=== PATIENT | male | born 1950 | race Caucasian/White ===

== ENCOUNTER 2017-09-16 07:00 | Inpatient (IN) | payer OTHER ==
[~2017-09-16] VITALS: Ht 180.3 cm; Wt 101.0 kg
[2017-09-16] VITALS (15 sets, daily range): BP systolic 142–165; BP diastolic 69–81; PULSE 69–88; RESP 11–19; Ht 180.3 cm; Wt 101.0 kg
[2017-09-16] MEDS ORDERED: GABA400C14 PO (17:24)
[2017-09-16] MEDS ORDERED: FLUO40CA10 PO (17:24)
[2017-09-16] MEDS ORDERED: MONT10TA24 PO (17:24)
[2017-09-16] MEDS ORDERED: LISI10TA2 PO (17:24)
[2017-09-16] MEDS ORDERED: [UNRECOGNIZED DRUG - CODE] PO (17:24)
[2017-09-16] MEDS ORDERED: LEVO200T6 PO (17:24)
[2017-09-16] MEDS ORDERED: DOXA4TAB3 PO (17:24)
[2017-09-16] MEDS ORDERED: LEVO300T PO (17:24)
[2017-09-16] MEDS ORDERED: ATOR40TA68 PO (17:24)
[2017-09-16] MEDS ORDERED: MORP60TA PO (17:24)
--- NOTE | 2017-09-16 18:45 | HPN ---
Date/Time of Note Date/Time of Note DATE: 09/16/17 TIME: 18:45 Interval H&P Admission Note Pt. seen H&P reviewed: No system changes NEL SHAFFER MD Sep 16, 2017 18:45
[2017-09-16] MEDS ORDERED: MIDAZOLAM 1 MG/ML 2 ML INJ ONE (19:02)
[2017-09-16] MEDS ORDERED: POLYMYXIN/BACITRACIN 1L IRRIG ONE (19:12)
[2017-09-16] MEDS ORDERED: THROMBIN 5000 UNIT VIAL ONE (19:12)
[2017-09-16] MEDS ORDERED: SURGIFOAM POWDER 1 GM KIT ONE (19:12)
[2017-09-16] MEDS ORDERED: BUPIVACAINE 0.5%/EPI (SDV) 30 ML INJ ONE (19:12)
[2017-09-16] MEDS ORDERED: GELATIN SIZE 100 SPONGE ONE (19:12)
[2017-09-16] MEDS ORDERED: hydrALAzine 20 MG INJ ONE (20:16)
[2017-09-16] MEDS ORDERED: morphine 10 MG INJ ONE (20:38)
[2017-09-16] MEDS ORDERED: DEXAMETHASONE 4 MG/ML 1 ML INJ ONE (21:57)
[2017-09-16] MEDS ORDERED: ONDANSETRON 4 MG INJ ONE (22:19)
--- NOTE | 2017-09-16 22:23 | SIPON ---
Date/Time of Note Date/Time of Note DATE: 09/16/17 TIME: 22:22 Operative Report Preoperative Diagnosis Cervical stenosis Postoperative Diagnosis Cervical stenosis Operation/Procedure Performed Cervical fusion Surgeon see signature line anesthesiologist assistant certified Leana Mariano Anesthesia: general Estimated blood loss: 10 - 50 ml's Transfusion Required none Specimen Disc Grafts/Implants Plate and cage Complications none NEL SHAFFER MD Sep 16, 2017 22:23
[2017-09-16] MEDS ORDERED: CEFAZOLIN 1 GM INJ ONE (22:25)
[2017-09-16] MEDS ORDERED: ROCURONIUM 50 MG INJ ONE (22:25)
[2017-09-16] MEDS ORDERED: PROPOFOL 20 ML ONE (22:25)
[2017-09-16] MEDS ORDERED: LIDOCAINE 2% (SDV) 5 ML INJ ONE (22:25)
[2017-09-16] MEDS ORDERED: NEOSTIGMINE 3 MG/3 ML SYRINGE ONE (22:25)
[2017-09-16] MEDS ORDERED: GLYCOPYRROLATE 0.4 MG INJ ONE (22:25)
[2017-09-16] MEDS ORDERED: ZOLPIDEM 5 MG TAB PO PRN (22:30)
[2017-09-16] MEDS ORDERED: CEPASTAT LOZENGE MT PRN (22:30)
[2017-09-16] MEDS ORDERED: BISACODYL 10 MG SUPP PR PRN (22:30)
[2017-09-16] MEDS ORDERED: AL HYDROX/MG HYDROX/SIMETH 30 ML CUP PO PRN (22:30)
[2017-09-16] MEDS ORDERED: ACETAMINOPHEN 325 MG TAB PO PRN (22:30)
[2017-09-16] MEDS ORDERED: ONDANSETRON 4 MG INJ IV PRN ×2 (22:30→23:00)
[2017-09-16] MEDS ORDERED: NALOXONE (0.4 MG/ML) INJ IV PRN (22:30)
[2017-09-16] MEDS ORDERED: DIPHENHYDRAMINE 50 MG INJ IV PRN ×2 (22:30→23:00)
[2017-09-16] MEDS ORDERED: HYDROmorphONE 0.5 MG/0.5 ML SYG IV PRN (22:30)
[2017-09-16] MEDS ORDERED: HYDROmorphONE (0.2 MG/ML) 10ML SYG IV ONE (22:38)
[2017-09-16] MEDS ORDERED: MEPERIDINE 25 MG INJ IV PRN (23:00)
[2017-09-16] MEDS ORDERED: LABETALOL HCL 20MG INJ IV PRN (23:00)
[2017-09-16] MEDS ORDERED: HYDROmorphONE (0.2 MG/ML) 10ML SYG IV PRN ×2 (23:00)
[2017-09-16] MEDS ORDERED: METOCLOPRAMIDE 10 MG INJ IV PRN (23:00)
[2017-09-16] MEDS ORDERED: FENTAnyl 50 MCG/ML VIAL IV PRN ×2 (23:00)
[2017-09-16] MEDS ORDERED: hydrALAzine 20 MG INJ IV PRN (23:00)
[2017-09-16] MEDS: HYDROmorphONE 0.2 MG/ML PCA IV SCH (23:05)
[2017-09-17] VITALS (9 sets, daily range): BP systolic 136–180; BP diastolic 65–98; PULSE 78–89; RESP 16–19
[2017-09-17] MEDS: D5W-0.45 NACL + KCL 20 MEQ 1,000 ML IV SCH ×4 (00:15→19:36)
[2017-09-17] MEDS: CEFAZOLIN 1 GM/50 ML (PMX) 50 ML IVPB SCH ×3 (00:15→13:53)
--- NOTE | 2017-09-17 00:16 | OPR ---
DATE OF OPERATION: 09/16/2017 PREOPERATIVE DIAGNOSIS: C4-C5, C5-C6 cervical disk disease, stenosis and radiculopathy. POSTOPERATIVE DIAGNOSIS: C4-C5, C5-C6 cervical disk disease, stenosis and radiculopathy. PROCEDURES: 1. Partial corpectomy at C4, C5, C6. 2. Anterior cervical fusion at C4-C5 and C5-C6. 2. Anterior hardware at C4-C5 and C5-C6. 3. Placement of intervertebral biomechanical device at C4-C5 and C5-C6. 4. Use of allograft. 5. Use of C-arm fluoroscopy with interpretation without radiologist present. 6. Intraoperative neuromonitoring (2 hours and 15 minutes). 7. Use of operative microscope. PRIMARY SURGEON: Javier Shaffer MD SEAM PRESSER: TERE Thomson NEED FOR FIREPERSON: During this spinal surgical procedure, my bacteriology research assistant was used to retrac t and protect the spinal nerves and dural sac. My bacteriology research assistant also employed the suction catheters to evacuate blood from the surgical field to improve visualization of the neural structures. The monty tant was medically necessary to facilitate the completion of the surgery in a safe and expeditious matt. State of [place] regulations, as well as hospital bylaws, preclude the use of non-license d health care personnel, such as operating room technicians, to perform these functions. FINDINGS: Neuromonitoring at the start of the case revealed right C5 amplitude down 40%, left C6 am plitude down 20%, right C6 amplitude down 40%. At the end of the case, nerve signals returned to no rmal. The patient had disk collapse and stenosis at C4-C5 and C5-C6 with partial autofusion at C5-C 6. IMPLANTS: 1. Zavation anterior cervical plate with 16 mm screws. 2. BK cervical PEEK cage 8 mm height, 16 mm depth, 18 mm width x2. 3. Fibergraft matrix. ESTIMATED BLOOD LOSS: 40 mL. DRAINS: None. SPECIMENS: Disk. COMPLICATIONS OF PROCEDURES: None. ANESTHESIOLOGIST: Dr. Ackerman. TYPE OF ANESTHESIA: General. INDICATIONS FOR PROCEDURE: This is a 66-year-old gentleman with neck pain and cervical radiculopath y in the setting of cervical disk disease and stenosis. He failed nonoperative measures. Therefore , I recommended proceeding with the above-mentioned surgery. Preoperatively, I discussed the risks, benefits and alternatives. He understood and wished to proceed. DESCRIPTION OF PROCEDURE IN DETAIL: The patient was identified in the preoperative holding area, akil oviedo, taken to the operating room where he was successfully placed under general ane sthesia. Neuromonitoring leads were placed. Sequential compressive devices were applied. Eli ca theter was introduced. Neuromonitoring was utilized during the procedure for 2 hours and 15 minutes to include SSEP, MEP and EMG. This was performed by [employer]. Start time was 8 p.m. Clos ure time was 10:15 p.m. The patient was placed supine. Towel rolls were placed behind the neck and between the scapular blades. Arms were tucked to the side and neck was extended. Neck was prepped and draped in the usual sterile fashion. Left-sided neck incision was made. The skin was incised. The platysma was incised in line with the skin incision. Two large vessels were identified anteri candelaria and the medial one needed to be ligated. I then identified an interval between the sternocleid omastoid and strap muscles, and I identified the anterior spine. I placed bent spinal needles. I t ook a lateral film to confirm the correct levels. I then subperiosteally dissected the longus colli musculature. Self-retaining retractors were then placed, and the anesthesiologist deflated and richmond nflated the cuff. Microscope was brought in. Partial corpectomies were performed at C4, C5 and C6 due to the collapse, and at least 50% of the vertebral bodies were removed at each level. I decompr essed the spinal cord at C4-C5 and C5-C6. I placed various trials and chose the appropriate graft h eight. I then took the PEEK cage within which I placed the allograft and I impacted the interverteb ral biomechanical device into the C4-C5 and C5-C6 level to complete the anterior fusion. I then mariah rody an anterior cervical plate spanning from C4 to C6 with 16 mm screws. Once this was done, I took final AP and lateral images. I was happy with placement of the hardware and alignment of the spine . Microscope was taken off the field. The wound was irrigated. Hemostasis was achieved with Surgi foam and bipolar cautery. The wound was dry and, therefore, I elected not to place a drain. All ne rve signals were normal at this point. Retractors were removed, and I closed the platysma with a ru nning 2-0 Vicryl stitch. I then closed the subcutaneous tissue with a 3-0 Vicryl stitch. Dermabond and sterile dressings were then applied. The patient was then awakened from anesthesia and taken t o recovery in stable condition. Lap, sponge, and instrument counts were correct x2. There were no apparent complications during the procedure. The patient will be admitted to the orthopedic fox for routine postoperative care to include pain c ontrol, neurovascular checks, antibiotics and physical therapy. Dictated By: JAVIER SHAFFER MD BB/PANTERA Conf#: [id number] DID#: [id number] CC: FREDERICK MELCHOR; JAVIER SHAFFER MD;*[facility]*
[2017-09-17 00:17] LABS: ADD UMIC NO; UR ASCORBIC ACID NEGATIVE (NEGATIVE); UR BILIRUBIN (Dip) NEGATIVE (NEGATIVE); UR BLOOD (Dip) NEGATIVE (NEGATIVE); UR CLARITY CLEAR (CLEAR); UR COLOR YELLOW (YELLOW); UR GLUCOSE (Dip) NEGATIVE (NEGATIVE); UR KETONES (Dip) NEGATIVE (NEGATIVE); UR LEUKOCYTE ESTERASE (Dip) NEGATIVE Leu/ul (NEGATIVE); UR NITRITE (Dip) NEGATIVE (NEGATIVE); UR SPECIFIC GRAVITY (Dip) 1.015 (1.003-1.030); UR TOTAL PROTEIN (Dip) NEGATIVE (NEGATIVE); UR UROBILINOGEN (Dip) NEGATIVE (NEGATIVE)
[2017-09-17] MEDS: HYDROmorphONE 0.2 MG/ML PCA IV SCH (04:35)
--- NOTE | 2017-09-17 05:11 | RADRPT ---
PROCEDURE: Anterior cervical discectomy and fusion. CLINICAL INDICATION: Pain. TECHNIQUE: Fluoroscopy time: 29.8 seconds. Images: 7 Radiation dose: 5.37 mGy One or more of the following dose reduction techniques were used: - Automated exposure control. - Adjustment of the mA and/or kV according to patient size. - Use of iterative reconstruction technique. COMPARISON: None. FINDINGS: There are anterior cervical discectomy and fusion changes of C4 - C6 with anterior fixatio n plate and well-positioned intervening bone grafts. IMPRESSION: Fluoroscopic services provided for the purpose of anterior cervical discectomy and fusion C4 - C6. RPTAT: HRSR Physician José Miguel Date Time Electronically viewed and signed by Physician José Miguel on 09/17/2017 05:11 RR/
[2017-09-17 05:56] LABS: ABNORMAL IP MESSAGE 1; BASOPHILS % 0.1 % (0.0-2.0); HEMATOCRIT 35.2 % (42.0-52.0); HEMOGLOBIN 12.2 g/dl (14.0-18.0); LYMPHOCYTES # 0.4 10^3/ul (0.8-2.9); LYMPHOCYTES % 4.5 % (15.0-51.0); MEAN CORPUSCULAR HEMOGLOBIN 31.1 pg (29.0-33.0); MEAN CORPUSCULAR HGB CONC 34.7 g/dl (32.0-37.0); MEAN CORPUSCULAR VOLUME 89.8 fl (82.0-101.0); MEAN PLATELET VOLUME 10.7 fl (7.4-10.4); MONOCYTE # 0.1 10^3/ul (0.3-0.9); MONOCYTES % 1.1 % (0.0-11.0); NEUTROPHILS % 93.9 % (39.0-77.0); PLATELET COUNT 154 10^3/UL (140-415); POSITIVE DIFF @See below; RED BLOOD COUNT 3.92 10^6/ul (4.70-6.10); RED CELL DISTRIBUTION WIDTH 12.3 % (11.5-14.5); WHITE BLOOD COUNT 8.5 10^3/ul (4.8-10.8)
[2017-09-17] MEDS ORDERED: CEFAZOLIN 2 GM/50 ML (PMX) 50 ML IVPB SCH (06:00)
[2017-09-17] MEDS ORDERED: LACTATED RINGER'S 1,000 ML IV* SCH (06:00)
[2017-09-17] MEDS: LEVOTHYROXINE 100 MCG TAB PO SCH ×2 (06:00→06:23)
[2017-09-17 06:24] LABS: CALCIUM 9.5 mg/dl (8.4-10.2); CREATININE 0.95 mg/dl (0.61-1.24); MAGNESIUM 1.6 mg/dl (1.7-2.5); POTASSIUM 3.7 mmol/L (3.5-5.1)
[2017-09-17] MEDS: ONDANSETRON 4 MG INJ IV PRN ×2 (08:40→13:53)
[2017-09-17] MEDS: BACLOFEN 10 MG TAB PO SCH ×3 (08:41→21:09)
[2017-09-17] MEDS: GABAPENTIN 400 MG CAP PO SCH ×2 (08:41→21:08)
[2017-09-17] MEDS: DOCUSATE SODIUM 100 MG CAP PO SCH ×2 (08:41→21:09)
[2017-09-17] MEDS ORDERED: LISINOPRIL 10 MG TAB PO SCH ×2 (09:00)
[2017-09-17] MEDS: morphine (ER) 30 MG TAB PO SCH (09:17)
[2017-09-17] MEDS: FLUOXETINE 20 MG CAP PO SCH (09:22)
--- NOTE | 2017-09-17 09:45 | CONS ---
DATE OF ADMISSION: 09/16/2017 DATE OF CONSULTATION: 09/17/2017 Thank you very much for allowing me to evaluate this 66-year-old male who underwent cervical spine s urgery yesterday. HISTORICAL EVENTS: As you well know, this patient has had cervical spine related pain, having last been evaluated by your office in early July of this year. Symptoms beginning in 2001 undergoing TENS unit intervention, traction, epidural injections and physical therapy. Despite the latter he c ontinued to remain symptomatic with radicular arm pain. Following appropriate imaging studies, elec zuly to proceed with surgery. Postoperatively, he has mild neck discomfort. He denies cough, wheezi ng, shortness of breath. Has had some nausea and vomiting last night without abdominal pain but thi s morning is feeling modestly better with respect to his GI symptoms. PAST MEDICAL HISTORY: Includes anemia, BPH, hypertension, hypothyroidism and history of sleep apnea , and undergoing left knee surgery. MEDICATIONS: 1. [place] Thyroid 30 mg per day. 2. Lipitor 40 mg per day. 3. Cardura 4 mg a day. 4. Prozac 90 mg per day. 5. Gabapentin 800 mg 2 tablets daily. 6. Synthroid 200 mcg per day. 7. Prinivil 10 mg per day. 8. Singulair 10 per day. 9. Zanaflex 4 mg every 12 hours. 10. Morphine 60 mg ER twice daily. ALLERGIES: NONE. FAMILY HISTORY: To be reviewed later. PHYSICAL EXAMINATION: GENERAL: Nikep male in no acute distress. VITAL SIGNS: BP 180/76, respirations were 18. He was afebrile. EYES: Extraocular muscles were full. NOSE, MOUTH, AND THROAT: Normal. NECK: Incision involving the anterior neck. No JVD, thyroid enlargement or adenopathy. LUNGS: Clear. HEART: Rhythm regular, no murmur. No third or fourth sound. ABDOMEN: Nontender. Liver and spleen were not palpable. No masses or tenderness were noted. EXTREMITIES: No edema. Calves nontender. Pulses 2+. NEUROLOGIC: No lateralizing motor weakness. IMPRESSION: 1. Stable postop cervical spine surgery. 2. History of hypertension with blood pressure now elevated. Will resume his usual blood pressure meds and start Catapres as needed for blood pressure greater than 160. Singulair will be resumed fo r the treatment of "allergies." 3. History of hyperlipidemia without coronary disease, undergoing preoperative cardiac eval. Stati n will be resumed. 4. We will follow daily for signs and symptoms of thromboembolic disease. Dictated By: VY LA MD MR/PANTERA Conf#: [id number] DID#: [id number] CC: NEL SHAFFER MD;*End*
--- NOTE | 2017-09-17 10:55 | PN ---
Date/Time of Note Date/Time of Note DATE: 09/17/17 TIME: 10:55 Assessment/Plan Lines/Catheters IV Catheter Type (from Nrsg): Peripheral IV Eli in Place (from Nrsg): Yes Assessment/Plan Assessment/Plan Status post anterior cervical fusion. Patient complains of neck pain. We will start him on OxyContin for breakthrough pain. Anticipate discharge in next 24- 48 hours Subjective 24 Hr Interval Summary Doing well. Complains of neck pain. Exam/Review of Systems Vital Signs Vitals Vital Signs Date Time Temp Pulse Resp B/P Pulse Ox O2 Delivery O2 Flow Rate FiO2 09/17/17 08:15 97.4 89 18 179/98 98 09/17/17 02:00 Room Air Intake and Output 09/16/17 09/16/17 09/17/17 15:00 23:00 07:00 Intake Total 1000 ml 1450 ml Output Total 190 ml 1500 ml Balance 810 ml -50 ml Exam Free Text/Dictation Neurovascularly intact Results Result Diagram: 09/17/17 0513 09/17/17 0513 NEL SHAFFER MD Sep 17, 2017 10:55
[2017-09-17] MEDS: NIFEdipine (XL) 30 MG TAB PO SCH ×3 (12:15→21:09)
[2017-09-17] MEDS: OXYCODONE/ACETAMINOPHEN (10/325) TAB PO PRN (18:36)
[2017-09-17] MEDS ORDERED: ATORVASTATIN 40 MG TAB PO SCH ×2 (21:00)
[2017-09-17] MEDS ORDERED: morphine (ER) 30 MG TAB PO SCH (21:00)
[2017-09-17] MEDS ORDERED: DOXAZOSIN 4 MG TAB PO SCH ×2 (21:00)
[2017-09-18 02:00] VITALS: BP 127/58; RESP 19
[2017-09-18] MEDS: OXYCODONE/ACETAMINOPHEN (10/325) TAB PO PRN ×3 (03:06→13:15)
[2017-09-18] MEDS: D5W-0.45 NACL + KCL 20 MEQ 1,000 ML IV SCH ×2 (04:28→06:32)
[2017-09-18] MEDS ORDERED: LEVOTHYROXINE 125 MCG TAB PO SCH (07:00)
[2017-09-18] MEDS ORDERED: MONTELUKAST 10 MG TAB PO SCH (07:00)
--- NOTE | 2017-09-18 07:38 | DS ---
Date/Time of Note Date/Time of Note DATE: 09/18/17 TIME: 07:37 Discharge Summary Admission/Discharge Info Admit Date/Time Sep 16, 2017 at 16:06 Discharge Date/Time September 18 Discharge Diagnosis Cervical fusion Procedures Cervical fusion Hospital Course Patient was admitted to the orthopedic fox after undergoing the above procedure. By postoperative day 2 he was deemed stable for discharge with follow-up arranged with the undersigned Home Meds Reported Medications Doxazosin Mesylate* (Doxazosin Mesylate*) 4 Mg Tablet, 4 MG PO HS, TAB 09/16/17 Lisinopril* (Lisinopril*) 10 Mg Tablet, 10 MG PO DAILY, #30 TAB 09/16/17 Fluoxetine Hcl* (Prozac*) 40 Mg Capsule, 90 MG PO friday, , , CAP 09/16/17 Montelukast Sodium* (Montelukast Sodium*) 10 Mg Tablet, 10 MG PO BEFORE BREAKFAST, #30 TAB 09/16/17 Gabapentin* (Gabapentin*) 400 Mg Capsule, 800 MG PO BID, #180 CAP 09/16/17 Atorvastatin* (Atorvastatin*) 40 Mg Tablet, 40 MG PO QHS, #30 TAB 09/16/17 Morphine Sulfate (Arymo ER) 60 Mg Tab.po.er, 60 MG PO AC BREAKFAST BEDTIME 09/16/17 Levothyroxine Sodium* (Levothyroxine Sodium*) 200 Mcg Tablet, 200 MCG PO BEFORE BREAKFAST, #30 TAB 09/16/17 Levothyroxine Sodium (Levothyroxine Sodium) 300 Mcg Tablet, 50 MCG PO BEFORE BREAKFAST, #30 TAB 09/16/17 Morphine Sulfate (Arymo ER) 30 Mg Tab.po.er, 30 MG PO hs 09/16/17 Primary Care Provider Not On Staff Doctor NEL SHAFFER MD Sep 18, 2017 07:38
--- NOTE | 2017-09-18 07:46 | CONS ---
Date/Time of Note Date/Time of Note DATE: 09/18/17 TIME: 07:45 Assessment/Plan Assessment/Plan Additional Assessment/Plan 1. Stable post op cx spine surgery. 2. BP is controlled. 3. Mag was low yesterday, will replete Consultation Date/Type/Reason Admit Date/Time Sep 16, 2017 at 16:06 Initial Consult Date Detailed Summary Respiratory: No cough, No shortness of breath Cardiovascular: No chest pain Gastrointestinal: no complaints Genitourinary: no complaints Musculoskeletal: neck pain (mild) Exam/Review of Systems Vital Signs Vitals Vital Signs Date Time Temp Pulse Resp B/P Pulse Ox O2 Delivery O2 Flow Rate FiO2 09/18/17 02:00 98.7 77 19 127/58 94 09/17/17 12:03 Room Air Intake and Output 09/17/17 09/17/17 09/18/17 14:59 22:59 06:59 Intake Total 500 ml 1740 ml 1550 ml Output Total 500 ml 1400 ml Balance 500 ml 1240 ml 150 ml Exam Neck: No jvd Respiratory: clear to auscultation Cardiovascular: regular rate and rhythm Gastrointestinal: soft Extremities: No edema (and no calf tend) Results Result Diagram: 09/17/1751209/17/17 05 Medications Medications Current Medications Potassium Chloride/Dextrose/ Sod Cl (D5-1/2ns + KCl 20 Meq) 1,000 ml @ 100 mls/ hr Q10H IV Last administered on 09/18/17 06:32; Admin Dose 100 MLS/HR; Start 09/16/17 at 22:28 Hydromorphone HCl (Dilaudid) 0.2 mg Q1H PRN IV BREAKTHROUGH PAIN; Start at 22:30 Bisacodyl (Dulcolax Supp) 10 mg DAILY PRN AL CONSTIPATION; Start 09/16/17 at 22:30 Docusate Sodium (Colace) 100 mg BID PO Last administered on 09/17/17 21:09; Admin Dose 100 MG; Start 09/17/17 at 09:00 Al Hydrox/Mg Hydrox/Simethicone (Mag-Al Plus) 15 ml Q6H PRN PO CONSTIPATION/ DYSPEPSIA; Start 09/16/17 at 22:30 Acetaminophen (Tylenol Tab) 650 mg Q4H PRN PO MILLER OR TEMP GREATER THAN 101.3F; Start 09/16/17 at 22:30 Phenol (Cepastat Lozenge) 1 lozenge PRN PRN MT SORE THROAT Last administered on 09/17/17 01:46; Admin Dose 1 LOZENGE; Start 09/16/17 at 22:30 Diphenhydramine HCl (Benadryl) 25 mg Q6H PRN IV ITCHING; Start 09/16/17 at 22: 30 Naloxone HCl (Narcan) 0.2 mg Q2M PRN IV RR 8 BREATHS/MIN OR LESS; Start at 22:30 Hydromorphone HCl (Dilaudid MAINFRAME SYSTEMS PROGRAMMER) MAINFRAME SYSTEMS PROGRAMMER to be started in PACU Q4PCA IV Last administered on 09/17/17 04:35; Admin Dose 6 MG; Start 09/16/17 at 22:30 Miscellaneous Information 1. Hold MAINFRAME SYSTEMS PROGRAMMER at 1,000... MAINFRAME SYSTEMS PROGRAMMER IV ; Start 09/16/17 at 22 :30 Morphine Sulfate (Ms Contin (Er)) 60 mg AM PO Last administered on 09/17/17 09:17; Admin Dose 60 MG; Start 09/17/17 at 09:00 Morphine Sulfate (Ms Contin (Er)) 90 mg HS PO Last administered on 09/17/17 21:08; Admin Dose 90 MG; Start 09/17/17 at 21:00 Gabapentin (Neurontin) 1,600 mg BID PO Last administered on 09/17/17 21:08; Admin Dose 1,600 MG; Start 09/17/17 at 09:00 Baclofen (Lioresal) 10 mg TID PO Last administered on 09/17/17 21:09; Admin Dose 10 MG; Start 09/17/17 at 09:00 Atorvastatin Calcium (Lipitor) 40 mg HS PO Last administered on 09/17/17 21: 07; Admin Dose 40 MG; Start 09/17/17 at 21:00 Influenza Virus Vaccine (Fluzone) 0.5 ml ONCE ONCE IM* ; Start 09/19/17 at 09:00 ; Stop 09/19/17 at 09:01 Ondansetron HCl (Zofran Inj) 4 mg Q4H PRN IV NAUSEA AND/OR VOMITING Last administered on 09/17/17 13:53; Admin Dose 4 MG; Start 09/17/17 at 09:00 Atorvastatin Calcium (Lipitor) 40 mg QHS PO ; Start 09/17/17 at 21:00 Doxazosin Mesylate (Cardura) 4 mg HS PO Last administered on 09/17/17 21:07; Admin Dose 4 MG; Start 09/17/17 at 21:00 Fluoxetine HCl (Prozac) 20 mg DAILY PO Last administered on 09/17/17 09:22; Admin Dose 20 MG; Start 09/17/17 at 09:00 Clonidine (Catapres) 0.1 mg TID PO Last administered on 09/17/17 21:09; Admin Dose 0.1 MG; Start 09/17/17 at 09:00 Lisinopril (Zestril) 10 mg DAILY PO ; Start 09/18/17 at 09:00 Nifedipine (Procardia Xl) 30 mg BID PO Last administered on 09/17/17 21:09; Admin Dose 30 MG; Start 09/17/17 at 12:15 Oxycodone/ Acetaminophen (Endocet (10/ 325)) 1 tab Q4H PRN PO PAIN Last administered on 09/18/17 03:06; Admin Dose 1 TAB; Start 09/17/17 at 14:05 VY LA MD Sep 18, 2017 07:46
[2017-09-18 08:06] VITALS: BP 123/63; RESP 17
[2017-09-18] MEDS ORDERED: MAGNESIUM SULFATE 3 GM in DEXTROSE 5% 100 ML IVPB ONE (09:00)
[2017-09-18] MEDS ORDERED: LISINOPRIL 10 MG TAB PO SCH (09:00)
[2017-09-18] MEDS: GABAPENTIN 400 MG CAP PO SCH (09:09)
[2017-09-18] MEDS: morphine (ER) 30 MG TAB PO SCH (09:10)
[2017-09-18] MEDS: BACLOFEN 10 MG TAB PO SCH ×2 (09:10→12:18)
[2017-09-18] MEDS: FLUOXETINE 20 MG CAP PO SCH (09:10)
[2017-09-18] MEDS: DOCUSATE SODIUM 100 MG CAP PO SCH (09:10)
[2017-09-18 14:10] VITALS: BP 132/79; PULSE 69; RESP 16
[2017-09-18 15:44] VITALS: BP 137/83; RESP 18
[2017-09-19] MEDS ORDERED: INFLUENZA VIRUS VACCINE 0.5 ML (DISPENSING) IM* ONE (09:00)
== END 2017-09-18 15:45 | disposition home or self-care (01) | DRG 473 ==
LOC: REC 16:06 → MS1 09-17 00:09
PROVIDERS: ADMIT Specialist; ATTEND Specialist
PROC: 0RG20K0 Fusion of 2 or more Cervical Vertebral Joints with Nonautologous Tissue Substitute, Anterior Approach, Anterior Column, Open Approach (ICD-10-PCS; principal; 2017-09-16 19:00)
DX: M50.121 Cervical disc disorder at C4-C5 level with radiculopathy (principal); I10 Essential (primary) hypertension; M48.02 Spinal stenosis, cervical region; N40.0 Benign prostatic hyperplasia without lower urinary tract symptoms; E03.9 Hypothyroidism, unspecified; G47.30 Sleep apnea, unspecified; E78.5 Hyperlipidemia, unspecified
CPT/HCPCS: 72052; 80048; 81003; 83735; 85025; 86999; 87086; 97116; 97161; 97530; J0360; J0690; J1100; J1170; J2250; J2270; J2405; J2710; J3010; J3475; J3480